=== PATIENT | male | born 1970 | race Caucasian/White ===

== ENCOUNTER 2017-08-04 15:22 | Emergency (ER) | payer MEDICAID ==
[~2017-08-04] VITALS: Ht 165.1 cm; Wt 71.0 kg
[2017-08-04 15:28] VITALS: Ht 165.1 cm; Wt 71.0 kg
[2017-08-04] MEDS ORDERED: ONDANSETRON 4 MG INJ IM STA (16:33)
[2017-08-04] MEDS ORDERED: DIPHENHYDRAMINE 50 MG INJ IM ONE (17:00)
--- NOTE | 2017-08-04 18:05 | RADRPT ---
PROCEDURE: CT Head without. CLINICAL INDICATION: Vomiting, dizziness. TECHNIQUE: The study was performed utilizing a multi-slice, multidetector CT scanner. Direct spira l 1 mm axial sections were obtained through the head without the use of intravenous contrast materia l. 1 or more of the following dose reduction techniques were utilized: Automated exposure control, adjustment of the mA and/or kV according to patient's size, iterative reconstruction technique. Co xochitl and sagittal reformations were obtained. The images were reviewed on a PACS workstation. DICOM images are available. RADIATION DOSE: CTDIvol: 42.0 mGyDLP: 720.2 mGy-cm COMPARISON: No prior studies are available for comparison. FINDINGS: There is no intracranial hemorrhage, extra-axial fluid collection, mass lesion, midline shift or hyd rocephalus. The ventricles, sulci and cisterns are within normal limits. The white matter is unrem arkable. The avendano-white matter differentiation is preserved. The basal cisterns are patent. The m idline structures are intact. The orbits, calvarium and extracranial soft tissues are normal in [place]. The visualized paranasal sinuses, mastoid air cells and middle ear cavities are normally ae rated. IMPRESSION: 1. No acute intracranial abnormality. No intracranial hemorrhage, extra-axial fluid collection, ma ss lesion or hydrocephalous. RPTAT: HGAS .Stevenson Lundberg MD, MD Date Time Electronically viewed and signed by .Stevenson Lundberg MD, MD on 08/04/2017 18:05 .S/
[2017-08-04] MEDS ORDERED: ONDA8TAB14 PO (18:20)
[2017-08-04] MEDS ORDERED: MECL-77 PO (18:20)
--- NOTE | 2017-08-04 18:24 | ERD ---
ER Documentation Chief Complaint Chief Complaint vomiting x 2 with dizziness HPI This 47-year-old male had sudden onset of vomiting and spinning type dizziness starting today. Denies any recent URIs or history of trauma. Denies chest pain or shortness breath or weakness. Vomiting is nonbilious nonbloody. ROS All systems reviewed and are negative except as per history of present illness. Medications Home Meds Active Scripts Meclizine Hcl* (Meclizine Hcl*) 25 Mg Tablet, 25 MG PO Q8H Y for DIZZINESS, #15 TAB Prov:MARLEN URENA MD 08/04/17 Ondansetron (Ondansetron Odt) 8 Mg Tab.rapdis, 8 MG PO Q6H Y for NAUSEA AND/OR VOMITING, #10 TAB Prov:MARLEN URENA MD 08/04/17 Allergies Allergies: Coded Allergies: No Known Allergy (Unverified , 08/04/17) PMhx/Soc Medical and Surgical Hx: pt denies Medical Hx, pt denies Surgical Hx Hx Alcohol Use: No Hx Substance Use: No Hx Tobacco Use: No Smoking Status: Never smoker Physical Exam Vitals Vital Signs Date Time Temp Pulse Resp B/P Pulse Ox O2 Delivery O2 Flow Rate FiO2 08/04/17 15:28 98.3 86 18 115/67 98 Physical Exam Const: [] Alert, uncomfortable due to active vomiting and retching. Head: Atraumatic Eyes: Normal Conjunctiva. Eyes PERRLA and extraocular movements intact. ENT: Normal External Ears, Nose and Mouth. Neck: Full range of motion..~ No meningismus. Resp: Clear to auscultation bilaterally Cardio: Regular rate and rhythm, no murmurs Abd: Soft, non tender, non distended. Normal bowel sounds Skin: No petechiae or rashes Back: No midline or flank tenderness Ext: No cyanosis, or edema Neur: Awake and alert. Positive reproducible vertigo to the right. No cerebellar signs. No appreciable focal neurologic deficits. Psych: Normal Mood and Affect Results 24 hrs Current Medications Medications (Trade) Dose Ordered Sig/Ina Route PRN Reason Start Time Stop Time Status Last Admin Dose Admin Ondansetron HCl (Zofran Inj) 4 mg ONCE STAT IM 08/04/17 16:33 08/04/17 16:35 DC 08/04/17 17:02 Diphenhydramine HCl (Benadryl) 25 mg ONCE ONCE IM 08/04/17 17:00 08/04/17 17:01 DC 08/04/17 17:02 Procedures/[facility] EKG: Rate/Rhythm: [Normal Sinus Rhythm] rate equals 79 QRS, ST, T-waves: [No changes consistent w/ acute ischemia] Impression: [No evidence of ischemia or arrhythmia]. Impression-normal EKG Patient is given Zofran 4 mg IM and Benadryl 25 mg IM for signs of reproducible vertigo and active vomiting. Given the degree of vomiting discomfort CT brain was performed which was read as normal by the radiologist. Patient presents with reproducible vertigo without signs or symptoms to suggest central vertigo, cerebellar signs, signs of bacterial infection, central lesions, deficits, cardiopulmonary etiology. We treated with Zofran and Antivert as he feels much better after observation treatment. Should recheck for any worsening symptoms with primary care doctor this week. The patient was stable with no new complaints during the ER course. Clinically, there is no current evidence to suggest meningitis, sepsis, acute abdomen, pneumonia, acute coronary syndrome, pulmonary embolism, or any other emergent condition appearing to require further evaluation or hospitalization. The patient should certainly return for any new or worsening symptoms per the aftercare instructions. They should otherwise follow-up with her primary care doctor for reevaluation this week. Departure Diagnosis: Primary Impression: Vertigo Additional Impression: Vomiting Vomiting type: unspecified Vomiting Intractability: unspecified Nausea presence: unspecified Qualified Code: R11.10 - Vomiting, intractability of vomiting not specified, presence of nausea not specified, unspecified vomiting type Condition: Stable Patient Instructions: Vertigo, Unspecified, Vomiting (6Y-Adult) Additional Instructions: CERBRO Y DENITA normal hoy. Cheque otro vez con auguste doctor primario en el proximo cooper or regresa para mas o nueva simptomas. MARLEN URENA MD Aug 04, 2017 18:24
[2017-08-04 18:46] VITALS: BP 106/74; PULSE 66; RESP 16; TEMP 97.9
== END 2017-08-04 18:47 | disposition home or self-care (01) ==
LOC: FTE 15:22
DX: R42 Dizziness and giddiness (principal)
CPT/HCPCS: 70450; 96372; J1200; J2405; Z7502; 93005

== ENCOUNTER 2018-06-28 20:40 | Emergency (ER) | END 2018-06-29 01:10 | disposition home or self-care (01) ==